=== PATIENT | female | born 1965 | race Two or more races ===

== ENCOUNTER 2021-04-10 13:16 | Inpatient (IN) | payer OTHER ==
[~2021-04-10] VITALS: Ht 165.1 cm; Wt 113.4 kg
[2021-04-10] MEDS ORDERED: GLIMEPIRIDE1 MG (13:38)
[2021-04-10] MEDS ORDERED: ZESTRIL20 MG PO (13:38)
[2021-04-10] MEDS ORDERED: GLUMETZA1000 MG PO (13:38)
[2021-04-10] MEDS ORDERED: EZALLOR SPRINKL10 MG PO (13:38)
--- NOTE | 2021-04-10 13:47 | NUR ---
PACIENTE ALERTA Y OERINTADA ACOMPANADA DE CAMACHO HIJA REFIERE QUE DESDE HACE 3 CASTRO SUFRE DE SHAUNA ABDOMINALES Y PELVICOS, REFIERE TENER NAUSEAS Y DOLOR DE DA. PACIENTE DIABETICA CON DXT SAMEERA 313. SE MONITOREAN S/V Y SE UBICA EN OBSERVACION.
--- NOTE | 2021-04-10 14:58 | NUR ---
SE ORIENTA PTE SOBRE EL TRATAMIENTO ORDEANDO POR EL DR APODACA PTE ALERTA Y CONCIENTE POR 3 SE REALIZAN MUESTRAS DE LABORATORIO Y SE ADMIONISTRAN MEDICAMENTO CHAZ ORDENADO PTE PENDIENTE CT
[2021-04-13] MEDS ORDERED: CLOTRIMAZOLE-BE15 G1 (08:21)
[2021-04-13] MEDS ORDERED: GLIMEPIRIDE4 M1 (08:21)
[2021-04-13] MEDS ORDERED: OMEPRAZOLE40 MG (08:21)
[2021-04-13] MEDS ORDERED: ROSUVASTATIN CA20 MG (08:21)
== END 2021-04-15 13:41 | disposition home or self-care (01) | DRG 392 ==
LOC: ER 13:16 → SEC-K 21:37 → SURH 04-11 09:36 → O/R 04-13 15:13 → SURH 04-13 15:17
PROVIDERS: ADMIT Internal Medicine; ATTEND Internal Medicine
PROC: BW2110Z Computerized Tomography (CT Scan) of Abdomen and Pelvis using Low Osmolar Contrast, Unenhanced and Enhanced (ICD-10-PCS; principal; 2021-04-11)
DX: K57.32 Diverticulitis of large intestine without perforation or abscess without bleeding (principal); I10 Essential (primary) hypertension; E11.9 Type 2 diabetes mellitus without complications; Z79.4 Long term (current) use of insulin; G47.33 Obstructive sleep apnea (adult) (pediatric); Z20.822 Contact with and (suspected) exposure to COVID-19

== ENCOUNTER 2021-04-18 00:12 | Emergency (ER) | payer OTHER ==
[~2021-04-18] VITALS: Ht 170.2 cm; Wt 113.4 kg
[~2021-04-18 00:12] MED LIST: CLOTRIMAZOLE-BE15 G1; EZALLOR SPRINKL10 MG PO; GLIMEPIRIDE1 MG; GLIMEPIRIDE4 M1; GLUMETZA1000 MG PO; OMEPRAZOLE40 MG; ROSUVASTATIN CA20 MG; ZESTRIL20 MG PO
[2021-04-18] MEDS ORDERED: INTESTINEX680 M1 (00:25)
== END 2021-04-18 10:47 | disposition home or self-care (01) ==
LOC: ER 00:12
DX: K57.92 Diverticulitis of intestine, part unspecified, without perforation or abscess without bleeding (principal)

== ENCOUNTER 2021-12-18 19:15 | Emergency (ER) | payer OTHER ==
[~2021-12-18] VITALS: Ht 170.2 cm; Wt 117.0 kg
[~2021-12-18 19:15] MED LIST changes: +INTESTINEX680 M1
[2021-12-19] MEDS ORDERED: ACETAMINOPHEN650 M2 PO (07:18)
[2021-12-19] MEDS ORDERED: INTESTINEX680 M1 PO (07:18)
[2021-12-19] MEDS ORDERED: LEVSIN0.125 MG PO (07:18)
[2021-12-19] MEDS ORDERED: PEPCID AC20 MG PO (07:18)
[2021-12-19] MEDS ORDERED: METRONIDAZOLE500 MG PO (07:18)
[2021-12-19] MEDS ORDERED: CIPRO500 MG PO (07:18)
[2021-12-19] MEDS ORDERED: ONDANSETRON HCL4 MG PO (07:19)
== END 2021-12-19 08:11 | disposition home or self-care (01) ==
LOC: ER 19:15
DX: K57.92 Diverticulitis of intestine, part unspecified, without perforation or abscess without bleeding (principal); R10.84 Generalized abdominal pain; Z20.822 Contact with and (suspected) exposure to COVID-19; K76.0 Fatty (change of) liver, not elsewhere classified

== ENCOUNTER 2022-01-18 16:33 | Inpatient (IN) | payer OTHER ==
[~2022-01-18] VITALS: Ht 170.2 cm; Wt 113.4 kg
[~2022-01-18 16:33] MED LIST changes: +ACETAMINOPHEN650 M2 PO; +CIPRO500 MG PO; +INTESTINEX680 M1 PO; +LEVSIN0.125 MG PO; +METRONIDAZOLE500 MG PO; +ONDANSETRON HCL4 MG PO; +PEPCID AC20 MG PO
[2022-01-18] MEDS ORDERED: DICY20TA PO (16:51)
--- NOTE | 2022-01-18 16:51 | NUR ---
SE RECIBE PTE ALERTA Y ORIENTADA X3,CAMACHO QUEJA PRINCIPAL DOLOR ABDOMINAL ,SE LE REALIZA DEXTRO ARROJA 513,DOLOR EN LA ESPALDA BAJA,NAUSEAS,DOLOR EN LAS PIERNAS ,CEFALEA.
--- NOTE | 2022-01-18 19:27 | NUR ---
PTE EVALUADO POR MD JAQUELINE BOWDEN [place] MED. SE EDUCA A PTE SOBRE EL MISOM Y REFIERE ENTENDER. SE MR NISHANT EJECUTA ORDENES BAJO MEDIDAS ACAEPTICAS. PTE PEND A RESULTADOS DE LAB.
--- NOTE | 2022-01-18 22:09 | NUR ---
SE REALIZA DXT Y SE LE NOTIFICA EL MISMO A RIMA QUIEN NO [place] [facility].
--- NOTE | 2022-01-18 23:25 | NUR ---
SE RECIBE PTEFEMENINA DE 56 YRS ALERTA CONCIENTE Y TRANQUILA EN ROBY CON BARABDA ELEVADA. PTE SE MANTIENE CON IVF'S PATENTE Y MAXIMILIANO DE EDEMA. SE MANTIENE BAJO OBSERVACION CON MEDICO CONSULTOR.
--- NOTE | 2022-01-19 01:12 | NUR ---
SE LE DA A PTE LA RAZIA DE [place]STR[place] PARA ESTUDIO DE CT SCAN DE ABDOMEN Y PELVIC. SE ORIENTA A PTE Y VERBALIZA ENTENDER.
--- NOTE | 2022-01-19 07:25 | NUR ---
SE RECIBE PTE DEL TURNO ANTERIOR, ALERTA Y ORIENTADA EN DARIANA MATTHEW ESFERAS, UBICADA EN ROBY NIVEL MAS BAJO, COLUNGA DE IDENTIFICACION Y BARANDAS ELEVADAS POR PRECAUCION. SE OBSERVA CON BUEN PATRON RESPIRATORIO Y PIEL TIBIA AL TACTO. IV PATENTE Y MAXIMILIANO DE EDEMA O ERITEMA RECIBIENDO 0.9% NSS @100ML/HR. PENDIENTE RE EVALUACION MEDICA. SE MANTIENE BAJO OBSERVACION.
[2022-01-19] MEDS ORDERED: GLIMEPIRIDE4 M1 (14:43)
== END 2022-01-29 21:37 | disposition home or self-care (01) | DRG 392 ==
LOC: ER 16:33 → MEDI 01-19 13:55 → SEC-K 01-19 13:55 → MEDI 01-19 14:36
PROVIDERS: ADMIT Internal Medicine; ATTEND Internal Medicine
PROC: BW21Y0Z Computerized Tomography (CT Scan) of Abdomen and Pelvis using Other Contrast, Unenhanced and Enhanced (ICD-10-PCS; principal; 2022-01-19)
PROC: BW21Y0Z Computerized Tomography (CT Scan) of Abdomen and Pelvis using Other Contrast, Unenhanced and Enhanced (ICD-10-PCS; 2022-01-26)
DX: K57.32 Diverticulitis of large intestine without perforation or abscess without bleeding (principal); K92.1 Melena; K90.49 Malabsorption due to intolerance, not elsewhere classified; Z68.41 Body mass index [BMI] 40.0-44.9, adult; E11.65 Type 2 diabetes mellitus with hyperglycemia; E66.01 Morbid (severe) obesity due to excess calories; Z20.822 Contact with and (suspected) exposure to COVID-19; G47.33 Obstructive sleep apnea (adult) (pediatric)

== ENCOUNTER 2022-10-05 02:46 | Emergency (ER) | payer OTHER ==
[~2022-10-05] VITALS: Ht 170.2 cm; Wt 113.4 kg
[~2022-10-05 02:46] MED LIST changes: +DICY20TA PO
[2022-10-05] MEDS ORDERED: HUMULIN R100 UNIT/1 (03:03)
== END 2022-10-05 07:18 | disposition home or self-care (01) ==
LOC: ER 02:46
DX: J40 Bronchitis, not specified as acute or chronic (principal); E11.9 Type 2 diabetes mellitus without complications; Z79.4 Long term (current) use of insulin; Z79.84 Long term (current) use of oral hypoglycemic drugs; I10 Essential (primary) hypertension; Z20.822 Contact with and (suspected) exposure to COVID-19

== ENCOUNTER 2022-12-10 15:39 | Inpatient (IN) | payer OTHER ==
[~2022-12-10] VITALS: Ht 170.2 cm; Wt 111.1 kg
[~2022-12-10 15:39] MED LIST changes: +HUMULIN R100 UNIT/1
--- NOTE | 2022-12-10 16:07 | NUR ---
PACIENTE ALERTA Y ORIENTADA X 3 REFIERE DOLOR ABDOMINAL Y DIARREAS X 3. SE LE REALIZA DXT 444.
--- NOTE | 2022-12-10 17:15 | NUR ---
PACIENTE EVALUADA POR DR MADDY PARSONS [place] [facility], SE LE ORIENTA A PACIENTE SOBRE EL MISMO Y VERBALIZA ENTENDER. SE LE COLECTAN MUESTRAS Y SE CANALIZA BAJO MEDIDAS ASEPTICAS. AREA DE VENOPUNCION PATENTE, MAXIMILIANO DE EDEMA Y ERITEMA. PACIENTE MANEJADA POR ISAIAS PERERA.
== END 2022-12-14 16:33 | disposition home or self-care (01) | DRG 392 ==
LOC: ER 15:39 → MEDI 22:11
PROVIDERS: ADMIT Internal Medicine; ATTEND Internal Medicine
PROC: BW21YZZ Computerized Tomography (CT Scan) of Abdomen and Pelvis using Other Contrast (ICD-10-PCS; principal; 2022-12-10)
DX: K57.32 Diverticulitis of large intestine without perforation or abscess without bleeding (principal); E86.0 Dehydration; I10 Essential (primary) hypertension; M79.7 Fibromyalgia; E11.65 Type 2 diabetes mellitus with hyperglycemia; Z79.4 Long term (current) use of insulin; E66.01 Morbid (severe) obesity due to excess calories; G47.33 Obstructive sleep apnea (adult) (pediatric); Z20.822 Contact with and (suspected) exposure to COVID-19

== ENCOUNTER 2023-07-24 14:07 | Inpatient (IN) | payer OTHER ==
[~2023-07-24] VITALS: Ht 170.2 cm; Wt 106.6 kg
--- NOTE | 2023-07-24 15:25 | NUR ---
PTE ALERTA Y OREINTADA X3 ACOMPANADA POR FAMILIAR. AL MOMENTO PTE REFIERE VENIR POR MALESTAR GENERAL Y FIEBRE. AL MOMENTO PTE PRESENTA 100.6 DE TEMP. REFIERE QUE SE MARY MOTRIN EN CAMACHO HOGAR A LAS 10AM. SE LE DA TYLENOL PARA CONTROLAR FIEBRE Y SE UBICA.
[2023-07-24] MEDS ORDERED: ACETAMINOPHEN 500 MG GEL..CAP PO ONE (17:00)
--- NOTE | 2023-07-24 17:29 | NUR ---
PACIENTE ALERTA Y ORIENTADA X 3. SE ORIENTA DE TRATAMIENTO CHAZ ORDEN MEDICA POR MR Pamela NAGY RN. PACIENTE REFIERE ENTENDER. RN RAZIA MUESTRAS CON MEDIDAS ASEPTICAS CORRESPONDIENTES Y ENTREGA ENVASE PARA ORINA.
[2023-07-24 17:52] LABS: MEAN CELL VOLUME 83.5 fL (80.00-100.00); MEAN CORPUSCULAR HEMOGLOBIN 28.5 pg (27.00-32.0); MEAN CORPUSCULAR HGB CONC 34.2 g/dl (32.0-36.0); PLATELET COUNT 223 K/uL (150-450); RED CELL DISTRIBUTION WIDTH 14.1 % (11.5-14.5)
[2023-07-24 18:42] LABS: URINE APPEARANCE Clear; URINE BILIRRUBIN Negative (NEGATIVE); URINE BLOOD Negative; URINE COLOR Yellow; URINE LEUKOCYTE Negative; URINE NITRATE Negative; URINE PROTEIN Negative (NEGATIVE); URINE UROBILINOGEN 0.2 E.U./dl
[2023-07-24 18:46] LABS: URINE EPITHELIAL CELLS 17.4 uL (0.0-38.8); URINE RBC 10.7 uL (0.0-20.8); URINE WBC 57.9 uL (0.0-23.2)
[2023-07-24 18:48] LABS: URINE GLUCOSE >=1000 MG/DL (NEGATIVE)
[2023-07-24] MEDS ORDERED: 0.9 % SODIUM CHLORIDE 500 ML IV ONE (19:30)
[2023-07-24] MEDS ORDERED: CEFTRIAXONE SODIUM 1,000 MG VIAL IV ONE (20:00)
[2023-07-24 21:59] LABS: ALBUMIN 3.4 gm/dL (3.4-5.0); BILIRUBIN TOTAL 0.74 mg/dL (0.3-1.2); CALCIUM 9.3 mg/dL (8.5-10.1); CREATININE SERUM 0.97 mg/dL (0.55-1.02); GFR 58.98; POTASSIUM 3.91 mEq/L (3.5-5.1); TOTAL PROTEIN 8.4 gm/dL (6.4-8.2)
[2023-07-24] MEDS ORDERED: ONDANSETRON HCL 4 MG in 0.9 % SODIUM CHLORIDE 50 ML IV PRN (23:15)
[2023-07-24] MEDS ORDERED: ACETAMINOPHEN 500 MG GEL..CAP PO PRN (23:15)
[2023-07-24] MEDS ORDERED: 0.9 % SODIUM CHLORIDE 1,000 ML IV SCH (23:15)
[2023-07-24] MEDS ORDERED: FAMOTIDINE/PF 20 MG in 0.9 % SODIUM CHLORIDE 8 ML IV PUSH SCH (23:15)
[2023-07-24] MEDS ORDERED: MEPERIDINE HCL/PF 25 MG/ML VIAL IM ONE (23:15)
[2023-07-24] MEDS ORDERED: KETOROLAC TROMETHAMINE 15 MG VIAL IU ONE (23:30)
[2023-07-24] MEDS ORDERED: DEXTROSE 50 % IN WATER 0.5 G/ML DISP.SYRIN IV PRN (23:30)
[2023-07-24] MEDS ORDERED: MEPERIDINE HCL/PF 25 MG/ML VIAL IM PRN (23:30)
[2023-07-24] MEDS ORDERED: INSULIN LISPRO 1,000 UNIT/10 ML UNITS SUBCUTANEO PRN (23:30)
[2023-07-25] MEDS ORDERED: PIPERACILLIN/TAZOBACTAM SODIUM 3.375 GM in DEXTROSE 5 % IN WATER 100 ML IV SCH
[2023-07-25 00:50] LABS: ABG pCO2 29.1 mmHg (35-45)
[2023-07-25 00:51] LABS: ABG PO2 73.5 mmHg (80-100); BASE EXCESS -4.6 mmol/l; BICARBONATE 18.4 mmol/l (23-25); SaO2 94.7 %; Tco2 19.3 mmol/l; allen test SATISFACTORY; o2 21 %; puncture site RADIAL LEFT
[2023-07-25 01:31] LABS: INR 1.03; PROTHROMBIN TIME 10.8 SECONDS (9.0-11.5)
[2023-07-25 01:32] LABS: PARTIAL THROMBOPLASTIN TIME 21.5 SECONDS (22.0-34.0)
[2023-07-25] MEDS ORDERED: LISINOPRIL 20 MG TABLET PO SCH (09:00)
[2023-07-25] MEDS ORDERED: AZITHROMYCIN 500 MG VIAL IV ONE (14:00)
[2023-07-26 07:12] LABS: HEMATOCRIT 35.5 % (36.0-45.00); MEAN CELL VOLUME 84.5 fL (80.00-100.00); MEAN CORPUSCULAR HEMOGLOBIN 28.5 pg (27.00-32.0); MEAN CORPUSCULAR HGB CONC 33.7 g/dl (32.0-36.0); PLATELET COUNT 195 K/uL (150-450); RED CELL DISTRIBUTION WIDTH 14.2 % (11.5-14.5)
[2023-07-26 07:21] LABS: ALBUMIN 2.8 gm/dL (3.4-5.0); BILIRUBIN TOTAL 0.39 mg/dL (0.3-1.2); CALCIUM 8.5 mg/dL (8.5-10.1); CREATININE SERUM 0.89 mg/dL (0.55-1.02); GFR 65.14; GLOBULINA 3.7 G/DL (2.4-3.5); POTASSIUM 4.44 mEq/L (3.5-5.1); TOTAL PROTEIN 6.5 gm/dL (6.4-8.2)
[2023-07-26] MEDS ORDERED: DEXTROSE 5 % AND 0.9 % NACL 1,000 ML IV SCH (07:45)
[2023-07-26 07:54] LABS: URINE APPEARANCE Clear; URINE BILIRRUBIN Negative (NEGATIVE); URINE BLOOD Large; URINE COLOR Yellow; URINE LEUKOCYTE Negative; URINE NITRATE Negative; URINE PROTEIN 30 (NEGATIVE); URINE UROBILINOGEN 0.2 E.U./dl
[2023-07-26 07:58] LABS: URINE EPITHELIAL CELLS 18.7 uL (0.0-38.8); URINE RBC 45.8 uL (0.0-20.8); URINE WBC 76.3 uL (0.0-23.2)
[2023-07-26 08:15] LABS: URINE GLUCOSE >=1000 MG/DL (NEGATIVE)
[2023-07-26 08:16] LABS: URINE YEAST FEW /hpf
[2023-07-26 08:34] LABS: MYCOPLASMA PNEUMONIAE IGM NON REACTIVE (NO REACTIVE)
[2023-07-26] MEDS ORDERED: AZITHROMYCIN 250 MG in 0.9 % SODIUM CHLORIDE 250 ML IV SCH (12:00)
[2023-07-26] MEDS ORDERED: VANCOMYCIN HCL 5 MG/ML REDILUIDO IV SCH (17:00)
[2023-07-27] MEDS ORDERED: SODIUM CHLORIDE 0.45 % 1,000 ML IV SCH (06:30)
[2023-07-27] MEDS ORDERED: PANTOPRAZOLE SODIUM 40 MG TABLET.DR PO SCH (09:00)
[2023-07-27] MEDS ORDERED: INSULIN GLARGINE,HUM.REC.ANLOG 1,000 UNITS/10 ML UNITS SUBCUTANEO SCH (09:00)
[2023-07-27] MEDS ORDERED: LACTOBACILLUS ACIDOPHILUS 1 CAP CAP PO SCH (09:00)
[2023-07-27] MEDS ORDERED: MELATONIN 5 MG TABLET PO SCH (21:00)
[2023-07-28 07:05] LABS: HEMATOCRIT 32.6 % (36.0-45.00); HEMOGLOBIN 11.1 g/dL (12.0-15.00); MEAN CELL VOLUME 84.1 fL (80.00-100.00); MEAN CORPUSCULAR HEMOGLOBIN 28.6 pg (27.00-32.0); PLATELET COUNT 216 K/uL (150-450); RED BLOOD COUNT 3.87 M/uL (4.00-6.00); RED CELL DISTRIBUTION WIDTH 14.3 % (11.5-14.5)
[2023-07-28 07:43] LABS: ALBUMIN 2.5 gm/dL (3.4-5.0); BILIRUBIN TOTAL 0.45 mg/dL (0.3-1.2); CALCIUM 8.7 mg/dL (8.5-10.1); CREATININE SERUM 0.58 mg/dL (0.55-1.02); GFR 106.77; GLOBULINA 3.5 G/DL (2.4-3.5); MAGNESIUM 1.7 mg/dL (1.8-2.4); POTASSIUM 3.45 mEq/L (3.5-5.1)
[2023-07-28 08:04] LABS: C-REACTIVE PROTEIN 9.48 MG/DL (0.00-0.29)
[2023-07-28 08:05] LABS: PHOSPHOROUS 1.9 mg/dL (2.5-4.9)
[2023-07-28] MEDS ORDERED: INSULIN GLARGINE,HUM.REC.ANLOG 1,000 UNITS/10 ML UNITS SUBCUTANEO SCH (09:00)
[2023-07-28] MEDS ORDERED: AMINO ACIDS/PROTEIN HYDROLYS 30 ML BLIST.PACK PO SCH (09:00)
[2023-07-28] MEDS ORDERED: POTASSIUM PHOS,M-BASIC-D-BASIC 18 MM in 0.9 % SODIUM CHLORIDE 250 ML IV NR (10:54)
[2023-07-28] MEDS ORDERED: POTASSIUM CHLORIDE IN WATER 40 MEQ/100 ML PIGGYBAG IV ONE (10:56)
[2023-07-28 11:04] LABS: ABG PH 7.383 (7.35-7.45); ABG PO2 66.8 mmHg (80-100); ABG pCO2 36.3 mmHg (35-45); BASE EXCESS -3.3 mmol/l; BICARBONATE 21.2 mmol/l (23-25); SaO2 92.4 %; Tco2 22.3 mmol/l
[2023-07-28 11:07] LABS: allen test SATISFACTORY; o2 21 %; puncture site RADIAL RIGHT
[2023-07-28] MEDS ORDERED: MAGNESIUM SULFATE IN WATER 50 ML IV SCH (12:00)
[2023-07-28] MEDS ORDERED: INSULIN LISPRO 1,000 UNIT/10 ML UNITS SUBCUTANEO SCH (12:00)
[2023-07-29 06:41] LABS: ALBUMIN 2.2 gm/dL (3.4-5.0); BILIRUBIN TOTAL 0.38 mg/dL (0.3-1.2); CALCIUM 7.7 mg/dL (8.5-10.1); CREATININE SERUM 0.46 mg/dL (0.55-1.02); GFR 139.52; GLOBULINA 3.2 G/DL (2.4-3.5); POTASSIUM 3.45 mEq/L (3.5-5.1); TOTAL PROTEIN 5.4 gm/dL (6.4-8.2)
[2023-07-29] MEDS ORDERED: INSULIN LISPRO 1,000 UNIT/10 ML UNITS SUBCUTANEO SCH (08:56)
[2023-07-29] MEDS ORDERED: POTASSIUM CHLORIDE IN WATER 100 ML IV SCH (17:00)
[2023-07-30] MEDS ORDERED: MAGNESIUM SULFATE 50% 1,000 MG/2 ML VIAL IM SCH (12:59)
[2023-07-30] MEDS ORDERED: POTASSIUM CHLORIDE IN WATER 40 MEQ/100 ML PIGGYBAG IV SCH (13:00)
[2023-07-30] MEDS ORDERED: FLUCONAZOLE 150 MG TABLET PO ONE (15:30)
[2023-07-30] MEDS ORDERED: CLOTRIMAZOLE/BETAMETHASONE DIP 15 GM TUBE TOP SCH (17:00)
[2023-07-31 10:59] LABS: CALCIUM 9.3 mg/dL (8.5-10.1); CREATININE SERUM 0.73 mg/dL (0.55-1.02); GFR 81.88; POTASSIUM 4.1 mEq/L (3.5-5.1)
[2023-08-01] MEDS ORDERED: PIPERACILLIN/TAZOBACTAM SODIUM 3.375 GM in DEXTROSE 5 % IN WATER 100 ML IV SCH (18:00)
[2023-08-02 06:55] LABS: HEMATOCRIT 33.8 % (36.0-45.00); HEMOGLOBIN 11.5 g/dL (12.0-15.00); MEAN CELL VOLUME 85.3 fL (80.00-100.00); PLATELET COUNT 327 K/uL (150-450); RED BLOOD COUNT 3.96 M/uL (4.00-6.00); RED CELL DISTRIBUTION WIDTH 14.2 % (11.5-14.5)
[2023-08-02 07:12] LABS: ALBUMIN 2.7 gm/dL (3.4-5.0); BILIRUBIN TOTAL 0.34 mg/dL (0.3-1.2); C-REACTIVE PROTEIN 1.82 MG/DL (0.00-0.29); CALCIUM 9.4 mg/dL (8.5-10.1); CREATININE SERUM 0.78 mg/dL (0.55-1.02); GFR 75.85; GLOBULINA 3.7 G/DL (2.4-3.5); MAGNESIUM 1.6 mg/dL (1.8-2.4); PHOSPHOROUS 3.9 mg/dL (2.5-4.9); POTASSIUM 3.88 mEq/L (3.5-5.1); TOTAL PROTEIN 6.4 gm/dL (6.4-8.2)
[2023-08-03] MEDS ORDERED: VANCOMYCIN HCL 1,000 MG VIAL IV SCH (21:00)
[2023-08-04] MEDS ORDERED: ZESTRIL20 MG PO (09:12)
[2023-08-04] MEDS ORDERED: INTESTINEX680 M1 PO (09:13)
[2023-08-04] MEDS ORDERED: PANTOPRAZOLE SO40 MG PO (09:13)
[2023-08-04] MEDS ORDERED: PEPCID AC20 MG PO (09:13)
[2023-08-04] MEDS ORDERED: Lantus 1000 UNITS/10 SUBCUTANEO (09:14)
[2023-08-04] MEDS ORDERED: GLIMEPIRIDE4 M1 PO (09:14)
[2023-08-04] MEDS ORDERED: INSULIN LI100 UNIT/1 SUBCUTANEO ×2 (09:14→09:15)
[2023-08-04] MEDS ORDERED: MELATONIN5 M2 PO (09:15)
[2023-08-04] MEDS ORDERED: CLOTRIMAZOLE-BE15 G1 TOP (09:15)
[2023-08-04] MEDS ORDERED: CLEOCIN HCL300 MG PO (09:17)
== END 2023-08-04 13:12 | disposition home or self-care (01) | DRG 638 ==
LOC: ER 14:07 → MEDI 23:21
PROVIDERS: General Practice; Internal Medicine Infectious Disease; Nurse Practitioner Family; ADMIT Internal Medicine; ATTEND Internal Medicine
PROC: BW21ZZZ Computerized Tomography (CT Scan) of Abdomen and Pelvis (ICD-10-PCS; principal; 2023-07-24)
PROC: BT43ZZZ Ultrasonography of Bilateral Kidneys (ICD-10-PCS; 2023-07-25)
PROC: 4A12X4Z Monitoring of Cardiac Electrical Activity, External Approach (ICD-10-PCS; 2023-07-25)
PROC: B54DZZZ Ultrasonography of Bilateral Lower Extremity Veins (ICD-10-PCS; 2023-07-26)
PROC: BR29ZZZ Computerized Tomography (CT Scan) of Lumbar Spine (ICD-10-PCS; 2023-07-27)
PROC: 02HV33Z Insertion of Infusion Device into Superior Vena Cava, Percutaneous Approach (ICD-10-PCS; 2023-07-27)
PROC: BL31ZZZ Magnetic Resonance Imaging (MRI) of Lower Extremity Connective Tissue (ICD-10-PCS; 2023-08-02)
DX: E11.65 Type 2 diabetes mellitus with hyperglycemia (principal); B37.49 Other urogenital candidiasis; R65.10 Systemic inflammatory response syndrome (SIRS) of non-infectious origin without acute organ dysfunction; L03.115 Cellulitis of right lower limb; E87.21 Acute metabolic acidosis; E86.0 Dehydration; M48.061 Spinal stenosis, lumbar region without neurogenic claudication; I87.2 Venous insufficiency (chronic) (peripheral); R10.31 Right lower quadrant pain; I10 Essential (primary) hypertension; Z79.4 Long term (current) use of insulin; Z79.84 Long term (current) use of oral hypoglycemic drugs
CPT/HCPCS: 73722

== ENCOUNTER 2023-08-19 20:36 | Emergency (ER) | payer OTHER ==
[~2023-08-19] VITALS: Ht 170.2 cm; Wt 106.6 kg
[~2023-08-19 20:36] MED LIST changes: +CLEOCIN HCL300 MG PO; +CLOTRIMAZOLE-BE15 G1 TOP; +GLIMEPIRIDE4 M1 PO; +INSULIN LI100 UNIT/1 SUBCUTANEO; +Lantus 1000 UNITS/10 SUBCUTANEO; +MELATONIN5 M2 PO; +PANTOPRAZOLE SO40 MG PO
[2023-08-20 00:28] LABS: INR 1.1; PARTIAL THROMBOPLASTIN TIME 29.8 SECONDS (22.0-34.0); PROTHROMBIN TIME 11.5 SECONDS (9.0-11.5)
[2023-08-20 00:36] LABS: ALBUMIN 3.3 gm/dL (3.4-5.0); BILIRUBIN TOTAL 0.3 mg/dL (0.3-1.2); CALCIUM 9.4 mg/dL (8.5-10.1); CREATININE SERUM 0.73 mg/dL (0.55-1.02); GFR 81.88; GLOBULINA 4.9 G/DL (2.4-3.5); POTASSIUM 4.05 mEq/L (3.5-5.1); TOTAL PROTEIN 8.2 gm/dL (6.4-8.2)
[2023-08-20 01:32] LABS: HEMATOCRIT 39.3 % (36.0-45.00); HEMOGLOBIN 12.9 g/dL (12.0-15.00); MEAN CELL VOLUME 83.1 fL (80.00-100.00); MEAN CORPUSCULAR HEMOGLOBIN 27.2 pg (27.00-32.0); MEAN CORPUSCULAR HGB CONC 32.8 g/dl (32.0-36.0); PLATELET COUNT 276 K/uL (150-450); RED BLOOD COUNT 4.73 M/uL (4.00-6.00); RED CELL DISTRIBUTION WIDTH 14.3 % (11.5-14.5)
[2023-08-20 02:24] LABS: URINE APPEARANCE Cloudy; URINE BILIRRUBIN Negative (NEGATIVE); URINE BLOOD Large; URINE COLOR Dark Yellow; URINE LEUKOCYTE Small; URINE NITRATE Positive; URINE PROTEIN 30 (NEGATIVE)
[2023-08-20 02:28] LABS: URINE BACTERIA 7955.5 uL (0.0-1933); URINE EPITHELIAL CELLS 7.1 uL (0.0-38.8); URINE RBC 186.6 uL (0.0-20.8); URINE WBC 819.4 uL (0.0-23.2)
[2023-08-20 03:08] LABS: URINE GLUCOSE >=1000 MG/DL (NEGATIVE)
[2023-08-20] MEDS ORDERED: CIPROFLOXACIN IN 5 % DEXTROSE 400 MG/200 ML PIGGYBAG IV STA (04:01)
[2023-08-20] MEDS ORDERED: METRONIDAZOLE/SODIUM CHLORIDE 500 MG/100 ML PIGGYBACK IV ONE (08:30)
== END 2023-08-20 10:11 | disposition home or self-care (01) ==
LOC: ER 20:36
PROVIDERS: Emergency Medicine
DX: R10.32 Left lower quadrant pain (principal); R30.0 Dysuria; N39.0 Urinary tract infection, site not specified; E11.9 Type 2 diabetes mellitus without complications; Z79.4 Long term (current) use of insulin

== ENCOUNTER 2023-08-25 19:43 | Inpatient (IN) | payer OTHER ==
[~2023-08-25] VITALS: Ht 167.6 cm; Wt 106.6 kg
--- NOTE | 2023-08-25 20:36 | NUR ---
PACIENTE ALERTA Y ORIENTADA X3 REFIERE TENER VANESSA DOLOR ABDOMINAL ACOMPANADOS DE DIARREAS X5 CON NAUSEAS Y VOMITOS X3. PACIENTE VERBALIZA TAMBIEN SENTIRSE MAREADA. AL MOMENTO DE TRIAGE TEMP. 99.8.
[2023-08-25] MEDS ORDERED: PIPERACILLIN/TAZOBACTAM SODIUM 3.375 GM in 0.9 % SODIUM CHLORIDE 100 ML IV SCH (21:22)
[2023-08-25] MEDS ORDERED: FAMOTIDINE/PF 20 MG in 0.9 % SODIUM CHLORIDE 8 ML IV PUSH STA (21:22)
[2023-08-25] MEDS ORDERED: ONDANSETRON HCL 2 MG/ML VIAL IV ONE (21:30)
[2023-08-25] MEDS ORDERED: 0.9 % SODIUM CHLORIDE 1,000 ML IV SCH (21:30)
[2023-08-25] MEDS ORDERED: MEROPENEM 500 MG/VIAL VIAL IV SCH (21:55)
[2023-08-25] MEDS ORDERED: 0.9 % SODIUM CHLORIDE 1,000 ML IV ONE (22:00)
[2023-08-25] MEDS ORDERED: MORPHINE SULFATE 4 MG/ML CARTRIDGE IV ONE (22:00)
[2023-08-25] MEDS ORDERED: ACETAMINOPHEN 500 MG GEL..CAP PO PRN (22:15)
[2023-08-25] MEDS ORDERED: MEPERIDINE HCL/PF 25 MG/ML VIAL IM PRN (22:15)
[2023-08-25] MEDS ORDERED: ONDANSETRON HCL 4 MG in 0.9 % SODIUM CHLORIDE 50 ML IV PRN (22:15)
[2023-08-25] MEDS ORDERED: INSULIN LISPRO 1,000 UNIT/10 ML UNITS SUBCUTANEO PRN (22:15)
[2023-08-25] MEDS ORDERED: DEXTROSE 50 % IN WATER 0.5 G/ML DISP.SYRIN IV PRN (22:15)
[2023-08-25 23:28] LABS: HEMATOCRIT 37.3 % (36.0-45.00); HEMOGLOBIN 12.5 g/dL (12.0-15.00); MEAN CELL VOLUME 83.2 fL (80.00-100.00); MEAN CORPUSCULAR HEMOGLOBIN 27.9 pg (27.00-32.0); MEAN CORPUSCULAR HGB CONC 33.6 g/dl (32.0-36.0); PLATELET COUNT 326 K/uL (150-450); RED BLOOD COUNT 4.48 M/uL (4.00-6.00); RED CELL DISTRIBUTION WIDTH 13.9 % (11.5-14.5)
[2023-08-25 23:30] LABS: URINE APPEARANCE Cloudy; URINE BILIRRUBIN Negative (NEGATIVE); URINE BLOOD Moderate; URINE COLOR Yellow; URINE LEUKOCYTE Small; URINE NITRATE Negative; URINE PROTEIN 30 (NEGATIVE); URINE UROBILINOGEN 0.2 E.U./dl
[2023-08-25 23:35] LABS: URINE BACTERIA 76.8 uL (0.0-1933); URINE WBC 660.1 uL (0.0-23.2)
[2023-08-25 23:56] LABS: ALBUMIN 2.9 gm/dL (3.4-5.0); BILIRUBIN TOTAL 0.58 mg/dL (0.3-1.2); CALCIUM 9.7 mg/dL (8.5-10.1); CREATININE SERUM 1.2 mg/dL (0.55-1.02); GFR 46.14; GLOBULINA 5.5 G/DL (2.4-3.5); POTASSIUM 3.83 mEq/L (3.5-5.1); TOTAL PROTEIN 8.4 gm/dL (6.4-8.2)
[2023-08-26 00:22] LABS: URINE GLUCOSE >=1000 MG/DL (NEGATIVE)
[2023-08-26 03:50] LABS: INR 1.08; PARTIAL THROMBOPLASTIN TIME 33.5 SECONDS (22.0-34.0); PROTHROMBIN TIME 11.3 SECONDS (9.0-11.5)
[2023-08-26 07:11] LABS: ABG PH 7.371 (7.35-7.45); ABG PO2 79.6 mmHg (80-100); ABG pCO2 29.5 mmHg (35-45); BASE EXCESS -7.1 mmol/l; BICARBONATE 16.7 mmol/l (23-25)
[2023-08-26 07:12] LABS: Tco2 17.6 mmol/l; allen test SATISFACTORY; o2 21 %; puncture site RADIAL RIGHT
[2023-08-26 07:13] LABS: SaO2 94.9 %
[2023-08-26] MEDS ORDERED: ENOXAPARIN SODIUM 40 MG/0.4 ML SYRINGE SUBCUTANEO SCH (09:00)
[2023-08-26] MEDS ORDERED: FAMOTIDINE/PF 20 MG in 0.9 % SODIUM CHLORIDE 8 ML IV PUSH SCH (09:00)
[2023-08-26] MEDS ORDERED: LISINOPRIL 10 MG TABLET PO SCH (09:00)
[2023-08-26] MEDS ORDERED: INSULIN NPH HUMAN ISOPHANE 1,000 UNITS/10 ML UNITS SUBCUTANEO STA (10:07)
[2023-08-26] MEDS ORDERED: DEXTROSE 5 % AND 0.9 % NACL 1,000 ML IV SCH (10:15)
[2023-08-26 15:36] LABS: CALCIUM 9.1 mg/dL (8.5-10.1); CHOL HDL RATIO 3.6 (0-5.0); CREATININE SERUM 1.21 mg/dL (0.55-1.02); GFR 45.7; POTASSIUM 4.32 mEq/L (3.5-5.1)
[2023-08-26] MEDS ORDERED: AA 4.25%/CAL/LYTES/DEXT 5% 1,000 ML PERIFERAL SCH (17:00)
[2023-08-26] MEDS ORDERED: INSULIN NPH HUMAN ISOPHANE 1,000 UNITS/10 ML UNITS SUBCUTANEO SCH (21:00)
[2023-08-27 09:41] LABS: HEMOGLOBIN 11.4 g/dL (12.0-15.00); MEAN CORPUSCULAR HEMOGLOBIN 28.2 pg (27.00-32.0); MEAN CORPUSCULAR HGB CONC 33.6 g/dl (32.0-36.0); PLATELET COUNT 269 K/uL (150-450); RED BLOOD COUNT 4.05 M/uL (4.00-6.00); RED CELL DISTRIBUTION WIDTH 13.7 % (11.5-14.5)
[2023-08-27 10:35] LABS: ALBUMIN 2.4 gm/dL (3.4-5.0); BILIRUBIN TOTAL 0.34 mg/dL (0.3-1.2); CALCIUM 9.1 mg/dL (8.5-10.1); GFR 56.95; GLOBULINA 4.4 G/DL (2.4-3.5); MAGNESIUM 2.3 mg/dL (1.8-2.4); PHOSPHOROUS 2.8 mg/dL (2.5-4.9); POTASSIUM 4.03 mEq/L (3.5-5.1); TOTAL PROTEIN 6.8 gm/dL (6.4-8.2)
[2023-08-27 10:36] LABS: C-REACTIVE PROTEIN 30.5 MG/DL (0.00-0.29)
[2023-08-27] MEDS ORDERED: PANTOPRAZOLE SODIUM 40 MG TABLET.DR PO SCH (14:04)
[2023-08-27] MEDS ORDERED: LACTOBACILLUS ACIDOPHILUS 1 CAP CAP PO SCH (14:05)
[2023-08-27] MEDS ORDERED: SODIUM CHLORIDE 0.45 % 1,000 ML IV SCH (14:15)
[2023-08-27] MEDS ORDERED: VANCOMYCIN HCL 125 MG/7.5 ML BLIST.PACK PO SCH (18:00)
[2023-08-27] MEDS ORDERED: MELATONIN 5 MG TABLET PO SCH (21:00)
[2023-08-28 08:43] LABS: URINE APPEARANCE Clear; URINE BILIRRUBIN Negative (NEGATIVE); URINE BLOOD Small; URINE COLOR Yellow; URINE LEUKOCYTE Negative; URINE NITRATE Negative; URINE PROTEIN 30 (NEGATIVE); URINE UROBILINOGEN 0.2 E.U./dl
[2023-08-28 08:46] LABS: URINE EPITHELIAL CELLS 18.3 uL (0.0-38.8); URINE WBC 41.7 uL (0.0-23.2)
[2023-08-28 08:53] LABS: URINE BACTERIA 3.7 uL (0.0-1933); URINE GLUCOSE >=1000 MG/DL (NEGATIVE)
[2023-08-28] MEDS ORDERED: INSULIN LISPRO 1,000 UNIT/10 ML UNITS SUBCUTANEO STA (12:37)
[2023-08-28] MEDS ORDERED: INSULIN LISPRO 1,000 UNIT/10 ML UNITS SUBCUTANEO SCH (17:00)
[2023-08-28] MEDS ORDERED: INSULIN GLARGINE,HUM.REC.ANLOG 1,000 UNITS/10 ML UNITS SUBCUTANEO SCH (21:00)
[2023-08-29] MEDS ORDERED: FLUCONAZOLE IN NACL,ISO-OSM 50 ML IV SCH (10:03)
[2023-08-29] MEDS ORDERED: FLUCONAZOLE IN NACL,ISO-OSM 200 MG/100 ML PIGGYBAG IV SCH (11:00)
[2023-08-29] MEDS ORDERED: FLUCONAZOLE IN NACL,ISO-OSM 2 MG/ML ML IV SCH (12:00)
[2023-08-30 07:28] LABS: HEMATOCRIT 33.1 % (36.0-45.00); HEMOGLOBIN 11.3 g/dL (12.0-15.00); MEAN CORPUSCULAR HGB CONC 34.2 g/dl (32.0-36.0); PLATELET COUNT 311 K/uL (150-450); RED BLOOD COUNT 4.04 M/uL (4.00-6.00); RED CELL DISTRIBUTION WIDTH 13.9 % (11.5-14.5)
[2023-08-30 07:50] LABS: ALBUMIN 2.4 gm/dL (3.4-5.0); BILIRUBIN TOTAL 0.18 mg/dL (0.3-1.2); CALCIUM 8.9 mg/dL (8.5-10.1); CREATININE SERUM 0.82 mg/dL (0.55-1.02); GFR 71.6; GLOBULINA 4.4 G/DL (2.4-3.5); POTASSIUM 3.96 mEq/L (3.5-5.1); TOTAL PROTEIN 6.8 gm/dL (6.4-8.2)
[2023-08-30 07:55] LABS: C-REACTIVE PROTEIN 11.4 MG/DL (0.00-0.29)
[2023-08-30] MEDS ORDERED: INSULIN LISPRO 1,000 UNIT/10 ML UNITS SUBCUTANEO SCH (12:34)
[2023-08-31 05:06] LABS: CA 125 7.2 U/mL (0.0-38.1)
[2023-08-31] MEDS ORDERED: INSULIN GLARGINE,HUM.REC.ANLOG 1,000 UNITS/10 ML UNITS SUBCUTANEO SCH (21:00)
[2023-09-01] MEDS ORDERED: ZESTRIL20 MG PO (12:09)
[2023-09-01] MEDS ORDERED: VANCOMYCIN HCL1 GM PO (12:09)
[2023-09-01] MEDS ORDERED: INTESTINEX680 M1 PO ×2 (12:10)
[2023-09-01] MEDS ORDERED: PEPCID AC20 MG PO (12:10)
[2023-09-01] MEDS ORDERED: PANTOPRAZOLE SO40 MG PO (12:10)
[2023-09-01] MEDS ORDERED: Lantus 1000 UNITS/10 SUBCUTANEO (12:12)
[2023-09-01] MEDS ORDERED: MELATONIN5 M2 PO (12:12)
[2023-09-01] MEDS ORDERED: INSULIN LI100 UNIT/1 SUBCUTANEO (12:12)
== END 2023-09-01 15:57 | disposition home or self-care (01) | DRG 872 ==
LOC: ER → SEC-K 22:10 → SURH 08-26 18:12
PROVIDERS: General Practice; Internal Medicine Infectious Disease; ADMIT Internal Medicine; ATTEND Internal Medicine
PROC: 02HV33Z Insertion of Infusion Device into Superior Vena Cava, Percutaneous Approach (ICD-10-PCS; 2023-08-27)
PROC: B24BZZZ Ultrasonography of Heart with Aorta (ICD-10-PCS; principal; 2023-08-28)
DX: A41.51 Sepsis due to Escherichia coli [E. coli] (principal); N39.0 Urinary tract infection, site not specified; Z16.12 Extended spectrum beta lactamase (ESBL) resistance; N17.9 Acute kidney failure, unspecified; B96.20 Unspecified Escherichia coli [E. coli] as the cause of diseases classified elsewhere; K52.9 Noninfective gastroenteritis and colitis, unspecified; I10 Essential (primary) hypertension; E11.65 Type 2 diabetes mellitus with hyperglycemia; Z79.4 Long term (current) use of insulin; E86.0 Dehydration; M79.7 Fibromyalgia; G47.33 Obstructive sleep apnea (adult) (pediatric); F43.20 Adjustment disorder, unspecified; Z20.822 Contact with and (suspected) exposure to COVID-19